=== PATIENT | male | born 1990 | race Two or more races ===

== ENCOUNTER 2024-12-14 15:09 | Emergency (ER) | payer OTHER ==
[~2024-12-14] VITALS: Ht 170.2 cm; Wt 98.3 kg
--- NOTE | 2024-12-14 16:12 | ED.PDOC ---
HPI (NEURO) HPI Comments This is a 34 year old male presenting to the ED with chief complaint of headache. Patient reports that he has been experiencing 4/10 pressure headaches to the left side of his head with associated dizziness, left sided ear pain that has since resolved, and left eye pressure for the past month. Patient relays that he has taken Ibuprofen with relief noted. Denies fever, chills, night sweats Denies persistent nausea Denies vomiting Denies thunderclap headache Denies photophobia, phonophobia Denies head trauma around the time headache started Denies family history of brain issues persistent headaches Denies taking any blood thinner medication Denies vision/hearing changes Denies focal loss of strength/sensation or changes in speech Chief Complaint: Headache Time Seen by MD: 16:10 Reviewed Notes: Nurses Notes, Medications, Allergies Information Source: Patient Mode of Arrival: Ambulatory Severity: Moderate Headache Severity: Moderate Timing: Months Duration: Intermittent Headache Quality: Other (Pressure) Headache Location: Temporal (Left) Onset: At rest Circumstances: Spontaneous Past Medical History PAST MEDICAL HISTORY: Denies Surgical History: Denies all surgeries Family History Family History: Reviewed,noncontributory to illness Social History Smoker: Non-Smoker Alcohol: Denies ETOH Use Drugs: Denies Drug Use Lives In: Home Constitutional: denies: chills, diaphoresis, fatigue, fever, malaise, sweats, weakness, others EENTM: reports: ear pain, eye pain; denies: blurred vision, double vision, ear bleeding, ear discharge, ear drainage, ear ringing, eye redness, hearing loss, mouth pain, mouth swelling, nasal discharge, nose bleeding, nose congestion, nose pain, photophobia, tearing, throat pain, throat swelling, voice changes, others Respiratory: denies: cough, hemoptysis, orthopnea, SOB at rest, shortness of breath, SOB with excertion, stridor, wheezing, others Cardiovascular: denies: chest pain, dizzy spells, diaphoresis, Dyspnea on exertion, edema, irregular heart beat, left arm pain, lightheadedness, palpitations, PND, syncope, others Gastrointestinal: denies: abdomen distended, abdominal pain, blood streaked bowels, constipated, diarrhea, dysphagia, difficulty swallowing, hematemesis, melena, nausea, poor appetite, poor fluid intake, rectal bleeding, rectal pain, vomiting, others Genitourinary: denies: burning, dysuria, flank pain, frequency, hematuria, incontinence, penile discharge, penile sore, pain, testicle pain, testicle swelling, urgency, others Neurological: reports: headache; denies: dizziness, fainting, left sided n umbness, left sided weakness, numbness, paresthesia, pre-existing deficit, right sided numbness, right sided weakness, seizure, speech problems, tingling, tremors, weakness, others Musculoskeletal: denies: back pain, gout, joint pain, joint swelling, muscle pain, muscle stiffness, neck pain, others Integumetry: denies: bruises, change in color, change in hair/nails, dryness, laceration, lesions, lumps, rash, wounds, others Allergic/Immunocompromised: denies: Difficulty Healing, Frequent Infections, Hives, Itching, others Hematologic/Lymphatic: denies: anemia, blood clots, easy bleeding, easy bruising, swollen glands, others Endocrine: denies: excessive hunger, excessive sweating, excessive thirst, excessive urination, flushing, intolerance to cold, intolerance to heat, unexpl ained weight gain, unexplained weight loss, others Psychiatric: denies: anxiety, bipolar disorder, depression, hopeless, panic disorder, schizophrenia, sleepless, suicidal, others All Other Systems: Reviewed and Negative Physical Exam General Appearance: No Apparent Distress, Normal HEENT: Normal ENT Inspection, Pharynx Normal, TMs Normal Neck: Full Range of Motion, Non-Tender, Normal, Normal Inspection Respiratory: Chest Non-Tender, Lungs Clear, No Accessory Muscle Use, No Respiratory Distress, Normal Breath Sounds Cardiovascular: No Edema, No JVD, No Murmur, No Gallop, Normal Peripheral Pulses, Regular Rate/Rhythm Breast Exam: Deferred Gastrointestinal: No Organomegaly, Non Tender, No Pulsatile Mass, Normal Bowel Sounds, Soft Genitalia: Deferred Pelvic: Deferred Rectal: Deferred Extremities: No calf tenderness, Normal capillary refill, Normal inspection, Normal range of motion, Non-tender, No pedal edema Musculoskeletal : Apperance: Normal Neurologic: Alert, trucker hand II-XII nml as Tested, No Motor Deficits, Normal Affect, Normal Mood, No Sensory Deficits Cerebellar Function: Normal Reflexes: Normal Skin: Dry, Normal Color, Warm Lymphatic: No Adenopathy Was a procedure done? Was a procedure done?: No X-Ray, Labs, Meds, VS Vital Signs Date Time Temp Pulse Resp B/P (MAP) Pulse Ox O2 Delivery O2 Flow Rate FiO2 12/14/24 15:10 98.2 64 18 116/86 96 98.2 Lab Test 12/14/24 16:20 Range/Units White Blood Count 6.6 4.4-10.8 10^3/uL Red Blood Count 5.53 4.5-5.90 10^6/uL Hemoglobin 17.4 13.5-17.5 g/dL Hematocrit 49.6 41.0-53.0 % Mean Corpuscular Volume 89.7 80.0-100.0 fL Mean Corpuscular Hemoglobin 31.5 28.0-32.0 pg Mean Corpuscular Hemoglobin Concent 35.1 32.0-36.0 g/dL Red Cell Distribution Width 12.6 11.8-14.3 % Platelet Count 229 140-450 10^3/uL Mean Platelet Volume 7.9 6.9-10.8 fL Neutrophils (%) (Auto) 70.2 37.0-80.0 % Lymphocytes (%) (Auto) 20.7 10.0-50.0 % Monocytes (%) (Auto) 7.4 0.0-12.0 % Eosinophils (%) (Auto) 0.9 0.0-7.0 % Basophils (%) (Auto) 0.8 0.0-2.0 % Neutrophils # (Auto) 4.6 1.6-8.6 10 ^3/uL Lymphocytes # (Auto) 1.4 0.4-5.4 10 ^3/uL Monocytes # (Auto) 0.5 0-1.3 10 ^3/uL Eosinophils # (Auto) 0.1 0-0.8 10 ^3/uL Basophils # (Auto) 0.1 0-0.2 10 ^3/uL Nucleated Red Blood Cells 0.2 % Sodium Level 141 136-145 mmol/L Potassium Level 4.1 3.5-5.1 mmol/L Chloride Level 103 98-107 mmol/L Carbon Dioxide Level 30 20-31 mmol/L Anion Gap 8 5-15 Blood Urea Nitrogen 12 9-23 mg/dL Creatinine 1.13 0.700-1.30 mg/dL Glomerular Filtration Rate Calc 89 >90 mL/min BUN/Creatinine Ratio 10.6 10.0-20.0 Serum Glucose 92 74-106 mg/dL Calcium Level 9.9 8.7-10.4 mg/dL Current Medications Medications (Trade) Dose Ordered Sig/Fransisca Route Start Time Stop Time Status Last Admin Sodium Chloride 1,000 ml @ 1,000 mls/hr Q1H ONCE IV 12/14/24 16:00 12/14/24 16:59 DC 12/14/24 16:45 Prochlorperazine Edisylate (Compazine Inj) 10 mg ONCE ONCE IM 12/14/24 16:00 12/14/24 16:01 DC 12/14/24 16:39 Diphenhydramine HCl (Benadryl Injection) 25 mg ONCE ONCE IM 12/14/24 16:00 12/14/24 16:01 DC 12/14/24 16:40 Ketorolac Tromethamine (Toradol Injection) 30 mg ONCE ONCE IM 12/14/24 16:00 12/14/24 16:01 DC 12/14/24 16:40 X-Ray, Labs, Meds, VS Comment This is a 34 year old male presenting to the ED with chief complaint of headache. Patient arrives alert and oriented, ABC's intact, afebrile, vital signs stable, saturating well in room air Peripheral IV insertion+ labs were ordered. CBC was ordered to exclude anemia, blood loss, or infection. BMP was ordered to exclude electrolyte abnormalities, renal failure, dehydration, hyperglycemia Diagnostic imaging ordered by me and results interpreted by radiology : Head CT Labs in the ED showed (pertinent+ and then pertinent-) Patient was given: Benadryl 25mg IV, Toradol 30mg IV, and Prochlorperazine 10mg IV. Tolerated medications with no adverse reaction. Additional MDM Review of External, Non-ED records: External records reviewed. Discussion with independent historian (EMS, family) history obtained from the patient/parents (if applicable) at bedside Chronic conditions affecting care: None Social determinants of health affecting care: None Consideration of admission (observation or admission): I considered escalation of care to admission for this patient, however given the reassuring workup, the patient is safe for outpatient management. Discussion with the Radiology: No Time of 1ST Reevaluation: 16:37 Reevaluation 1ST: Improved Patient Education/Counseling: Diagnosis, Treatment Family Education/Counseling: No Family Present Departure 1 Departure Time of Disposition: 17:12 Impression: Primary Impression: Migraine Qualified Codes: G43.909 - Migraine, unspecified, not intractable, without status migrainosus Disposition: HOME / SELF CARE / HOMELESS Condition: Stable Critical Care Note Critical Care Time?: No Stability Stability form required: No Heart Score Heart Score: Heart Score Response (Comments) Value History N/A 0 EKG N/A 0 Age N/A 0 Risk Factors N/A 0 Troponin N/A 0 Total 0 I personally scribed for ROSALIE NAVARRO NP ([email or web address]) on 12/14/24 at 16:12. Electronically submitted by Edilberto Rock ([email or web address]). ROSALIE NAVARRO NP Dec 14, 2024 16:12
[2024-12-14 16:31] LABS: Hematocrit 49.6 % (41.0-53.0); Hemoglobin 17.4 g/dL (13.5-17.5); Mean Corpuscular Hemoglobin 31.5 pg (28.0-32.0); Mean Corpuscular Volume 89.7 fL (80.0-100.0); Nucleated Red Blood Cells % 0.2 %
--- NOTE | 2024-12-14 16:34 | DVH ---
CLINICAL HISTORY: BRANCH. TECHNIQUE: Helical scanning was performed of the head from the skull base to the vertex. Multiplanar reconstructions were performed. This exam was performed according to our departmental dose optimizat ion program. Up-to-date CT equipment and radiation dose reduction techniques are utilized as appropri ate. CTDI 49.8 DLP 796.0 COMPARISON: None FINDINGS: There is no evidence for acute intracranial hemorrhage, acute ischemic changes, mass, mass effect, or extra-axial fluid collection. There is no hydrocephalus or midline shift. There is no effacement of the cerebral sulci and basal subarachnoid cisterns. The smith-white matter differentiation is well beto ntained. The imaged paranasal sinuses are clear. IMPRESSION: NO ACUTE INTRACRANIAL ABNORMALITY SEEN.
[2024-12-14 16:37] LABS: Chloride 103 mmol/L (98-107); Potassium 4.1 mmol/L (3.5-5.1); Sodium 141 mmol/L (136-145)
[2024-12-14 16:38] LABS: Anion Gap 8 (5-15); Carbon Dioxide 30 mmol/L (20-31)
[2024-12-14 16:39] LABS: Calcium 9.9 mg/dL (8.7-10.4)
[2024-12-14] MEDS: PROCHLORPERAZINE EDISYLATE 5 MG/ML 2ML VIAL IM ONE (16:39)
[2024-12-14] MEDS: diphenhdrAMINE HCL 50 MG/1 ML VL IM ONE (16:40)
[2024-12-14] MEDS: KETOROLAC TROMETH 30 MG/ML 1ML VIAL IM ONE (16:40)
[2024-12-14 16:43] LABS: BUN/Creatinine Ratio 10.6 (10.0-20.0); Blood Urea Nitrogen 12 mg/dL (9-23); Glucose 92 mg/dL (74-106)
[2024-12-14] MEDS: SODIUM CHLORIDE 0.9% 1,000 ML IV ONE (16:45)
[2024-12-14 17:26] VITALS: BP 120/79; PULSE 85; RESP 17; TEMP 98.7; O2SAT 98
== END 2024-12-14 17:30 | disposition home or self-care (01) ==
LOC: ER 15:09
DX: G43.909 Migraine, unspecified, not intractable, without status migrainosus (principal); H92.02 Otalgia, left ear
CPT/HCPCS: 36415; 70450; 80048; 85025; 96360; 96372; 99285; J0780; J1200; J1885; J7030